=== PATIENT | male | born 1990 | race African-American/Black ===

== ENCOUNTER 2019-07-31 15:56 | Emergency (ER) | payer OTHER ==
[~2019-07-31] VITALS: Ht 167.6 cm; Wt 72.6 kg
[~2019-07-31 15:56] MED LIST: MOBIC15 MG PO
[2019-07-31 16:07] VITALS: BP 122/64
== END 2019-07-31 16:58 | disposition home or self-care (01) ==
LOC: ER 15:56
DX: M70.9 Unspecified soft tissue disorder related to use, overuse and pressure (principal); F17.210 Nicotine dependence, cigarettes, uncomplicated